=== PATIENT | male | born 1950 | race Caucasian/White ===

== ENCOUNTER → 2018-08-24 15:07 | Outpatient (CLI) | payer MEDICARE, OTHER, SELFPAY ==
--- NOTE | 2018-08-24 | DI.CT.S_ITS ---
PROCEDURE: CT ABDOMEN PELVIS W CON INDICATIONS: GENERALIZED ABDOMINAL PAIN, SMALL BOWEL OBSTRUCTION/CHOLECYSTITIS/PANCREATITIS TECHNIQUE: After the administration of oral and intravenous contrast, 5 mm thick sections acquired from the diaphragms to the symphysis. 5 mm thick coronal and sagittal reformats were performed. For radiation dose reduction, the following was used: automated exposure control, adjustment of mA and/or kV according to patient size. COMPARISON: None. FINDINGS: Image quality: Excellent. ABDOMEN: Lung bases: Bibasilar scarring/atelectasis is seen.. Heart size is normal. Solid organs: Liver is normal in size and enhancement. There is hepatic steatosis with diffusely decreased liver parenchymal density. Gallbladder is within normal limits. Biliary system is non-dilated. Pancreas enhances normally. Spleen is normal in size and enhancement. No adrenal nodules. Mild distention of bilateral renal pelvises are seen more prominent on the left side with dilatation of bilateral ureter to the level of the UVJs also normal prominent on the left side. No obstructing renal stone or ureteral stone is seen. No calcified bladder stone is noted. Peritoneum and bowel: There is no evidence of bowel structure. Mild small bowel wall thickening involving small bowel loops in right side of abdomen is seen extending to the level of the ileocecal junction suggestive of infectious or inflammatory ileitis. No free fluid or free air is seen. No gross colonic wall thickening. Nodes and vessels: No retroperitoneal or mesenteric adenopathy. Aorta and inferior vena cava are normal in caliber. Atherosclerotic calcifications are noted as well abdominal aorta and bilateral iliac arteries. Miscellaneous: No ventral hernias. PELVIS: Genitourinary: Bladder wall thickness is normal. Urinary bladder is distended. Miscellaneous: No inguinal hernias or adenopathy. Bones: No suspicious bony lesions. No vertebral body compression fractures. IMPRESSION: 1. Mild small bowel wall thickening involving ileal loops in right side of abdomen extending to ileocecal junction. No evidence of bowel obstruction. No free fluid or free air. Finding may represent infectious inflammatory ileitis. 2. Mild prominence of bilateral renal pelvis and left worse than right bilateral mild hydroureter. No obstructing renal stone or ureteral stone is seen. Finding may represent reflux pathology or urinary outlet obstruction, suggest clinical correlation. 3. Hepatic steatosis. Dictated by: Trever Siegel M.D. on 08/24/2018 at 17:04 Approved by: Trever Siegel M.D. on 08/24/2018 at 17:11
== END ==
PROVIDERS: Family Provider Family Medicine; PCP Family Medicine; Visit Provider Nurse Practitioner Family
DX: R10.84 Generalized abdominal pain (principal); N13.4 Hydroureter; K76.0 Fatty (change of) liver, not elsewhere classified
CPT/HCPCS: 74177; Q9967